=== PATIENT | female | born 1995 | race African-American/Black ===

== ENCOUNTER 2021-10-12 09:58 | Emergency (ER) | payer SELFPAY ==
[~2021-10-12] VITALS: Ht 152.4 cm; Wt 47.0 kg
[2021-10-12] MEDS ORDERED: IBUPROFEN 600MG TABLET PO STA (10:23)
[2021-10-12 11:20] VITALS: BP 120/72
[2021-10-12] MEDS ORDERED: CYCL5TAB PO (13:05)
[2021-10-12] MEDS ORDERED: NAPR-681 PO (13:05)
== END 2021-10-12 13:25 | disposition home or self-care (01) ==
LOC: ER 09:58
DX: M54.9 Dorsalgia, unspecified (principal); M54.2 Cervicalgia; V49.49XA Driver injured in collision with other motor vehicles in traffic accident, initial encounter; Y93.89 Activity, other specified; Y92.89 Other specified places as the place of occurrence of the external cause; Y99.8 Other external cause status
CPT/HCPCS: 71045; 72110; 99284